=== PATIENT | male | born 2000 | race Caucasian/White ===

== ENCOUNTER 2023-07-08 07:45 | Emergency (ER) | payer OTHER ==
[~2023-07-08] VITALS: Ht 188 cm; Wt 76.7 kg
[2023-07-08] MEDS ORDERED: nyquil (08:03)
[2023-07-08] MEDS ORDERED: IBUP200T46 PO (08:03)
[2023-07-08 09:16] LABS: RSV AMPLIFICATION NEGATIVE (NEGATIVE)
[2023-07-08] MEDS ORDERED: dexAMETHasone 20MG/5ML VIAL IV ONE (09:45)
[2023-07-08] MEDS ORDERED: NS 1,000 ML IV ONE (09:45)
[2023-07-08] MEDS ORDERED: ACETAMINOPHEN *IV* 1,000 MG in IV 1 EA IV ONE (09:45)
[2023-07-08] MEDS ORDERED: ISOVUE-370 76% 100ML VIAL As Ordered ONE (10:14)
[2023-07-08 10:17] LABS: BASO % 0.3 % (0.0-1.0); EOS % 0.3 % (0.0-3.0); HEMATOCRIT 45.4 % (42.0-52.0); HEMOGLOBIN 13.8 g/dl (13.5-17.5); LYMPH # 0.7 10^3/uL (1.5-5.0); MEAN CORPUSCULAR HEMOGLOBIN 22.3 pg (27.0-33.0); MEAN CORPUSCULAR HGB CONC 30.4 g/dl (32.0-36.5); MEAN CORPUSCULAR VOLUME 73.3 fl (80.0-96.0); MONO # 0.8 10^3/uL (0.0-0.8); MONO % 12.7 % (2.0-8.0); NEUTROPHILS # 4.9 10^3/uL (1.5-8.5); NEUTROPHILS % 75.5 % (36.0-66.0); PLATELET COUNT, AUTOMATED 172 10^3/uL (150-450); RED BLOOD COUNT 6.19 10^6/uL (4.30-6.10); WHITE BLOOD COUNT 6.5 10^3/uL (4.0-10.0)
[2023-07-08 10:22] LABS: ERYTHROCYTE SEDIMENTATION RATE 45 mm/hr (0-15)
[2023-07-08 10:37] LABS: MONO REFLEX EBV COMP NEGATIVE (NEGATIVE)
[2023-07-08] MEDS ORDERED: KETOROLAC 30 MG/ML 1ML VIAL IV ONE (11:40)
[2023-07-08] MEDS ORDERED: LIDO4SO AD (11:42)
[2023-07-08 11:44] VITALS: TEMP 100.8
[2023-07-08] MEDS ORDERED: AMPICILLIN SOD/SULBACTAM SOD 3 GM in D5W MINI-BAG PLUS 100 ML IV ONE (12:00)
[2023-07-08] MEDS ORDERED: AMOX875T2 PO (12:04)
[2023-07-08] MEDS ORDERED: IBUP80TA PO (12:04)
[2023-07-08 12:13] VITALS: BP 120/57; O2SAT 97
[2023-07-09 17:07] LABS: EBV AB TO NUCLEAR ANTIGEN >600.0 U/mL (0.0-17.9); EBV VIRAL CAPSID AG IgG >600.0 U/mL (0.0-17.9); EBV VIRAL CAPSID AG IgM <36.0 U/mL (0.0-35.9)
== END 2023-07-08 12:18 | disposition home or self-care (01) ==
LOC: M ED 07:45
DX: J02.9 Acute pharyngitis, unspecified (principal); F17.290 Nicotine dependence, other tobacco product, uncomplicated
CPT/HCPCS: 70491; 80047; 83605; 85025; 85652; 86140; 86308; 86664; 86665; 87040; 87631; 94760; 96365; 96375; 99284; J0131; J0295; J1100; J1885; Q9967

== ENCOUNTER 2024-05-12 07:22 | Emergency (ER) | payer OTHER ==
[~2024-05-12] VITALS: Ht 185.4 cm; Wt 74.1 kg
[~2024-05-12 07:22] MED LIST: AMOX875T2 PO; IBUP200T46 PO; IBUP80TA PO; LIDO4SO AD; nyquil
[2024-05-12 09:29] LABS: RSV AMPLIFICATION NEGATIVE (NEGATIVE)
[2024-05-12] MEDS ORDERED: AMOX500C PO (09:32)
[2024-05-12 09:55] VITALS: BP 115/71; TEMP 99; O2SAT 99
== END 2024-05-12 10:00 | disposition home or self-care (01) ==
LOC: M ED 07:22
DX: B34.8 Other viral infections of unspecified site (principal); H66.91 Otitis media, unspecified, right ear; Z79.2 Long term (current) use of antibiotics

== ENCOUNTER 2024-05-14 13:42 | Emergency (ER) | payer OTHER ==
[~2024-05-14] VITALS: Ht 185.4 cm; Wt 72.9 kg
[~2024-05-14 13:42] MED LIST changes: +AMOX500C PO
[2024-05-14 13:45] VITALS: BP 130/62; TEMP 98.3; O2SAT 98
== END 2024-05-14 17:16 | disposition left against medical advice (07) ==
LOC: M ED 13:42
DX: Z53.21 Procedure and treatment not carried out due to patient leaving prior to being seen by health care provider (principal)